=== PATIENT | female | born 1960 | race Caucasian/White ===

== ENCOUNTER → 2017-01-09 | Outpatient (CLI) | payer OTHER ==
[~2017-01-09] MED LIST: ALPRAZOLAM PO; GABITRIL4 MG PO; IMURAN50 MG PO; KCL PO; LASIX PO; LIPITOR PO; MESTINON; POSTURE600 MG PO; PRILOSEC PO; ZANTAC PO; ZANTAC150 M1 PO; ZOLOFT PO; [UNRECOGNIZED DRUG - OTHER]
--- NOTE | ~2017-01-09 | CT2 ---
[facility] A Service of [facility] & [facility] RADIOLOGY TEXT RESULTS PATIENT: TOSHA ROLDAN LOCATION: [facility] : 58 UNIT #: [id number] AGE: [address]: LATOYA ZARAGOZA APRN SEX: F ORDER DR: [id number] [facility] [address] [place], [place] [address] [id number] O MR#: [id number] #: [id number] NAME: TOSHA ROLDAN : 1960 SEX: F STUDY DATE/TIME: 01/09/2017 14:20 UNIT: [facility] ROOM: STUDY DESCRIPTION: CT Abd and Pelv W Cont Attending Physician: Latoya Zaragoza Aprn Referring Physician: Latoya Zaragoza Aprn Ordering Physician: Latoya Zaragoza Aprn Primary Care Physician: Italo Duncan M.D. MEDICAL IMAGING REPORT This report is preliminary unless electronic signature is present EXAM CT of abdomen and pelvis HISTORY Epigastric and mid abdominal pain for [address] images were obtained from the dome of the diaphragm through the symphysis pubis following administration of intravenous and oral contrast material. This CT exam was performed with one or more of the following radiation dose reduction techniques: automatic exposure control, adjustment of mA and/or kV according to patient size, and iterative reconstruction. FINDINGS Images through the lung bases are clear. Liver and spleen appear normal as are the stomach and proximal small bowel. Adrenal glands are within normal limits as is the pancreas. Kidneys appear normal. There is a hyperdensity which is seen within the gallbladder. I am uncertain if this reflects a gallbladder fold, potentially there may be some stones present. This could be better assessed with dedicated gallbladder ultrasound. No adenopathy is seen within the abdomen. There is no evidence of mechanical bowel obstruction. The appendix is visualized and is within normal limits. Urinary bladder is normal as is the uterus. There is some colonic diverticulosis without evidence of diverticulitis. No free fluid or adenopathy is seen in the pelvis. No aggressive osseous abnormalities are seen. 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 IMPRESSION [facility]. [facility] A Service of [facility] & [facility] RADIOLOGY TEXT RESULTS PATIENT: TOSHA ROLDAN LOCATION: [facility] : 58 UNIT #: [id number] AGE: [address]: LATOYA ZARAGOZA [employer] SEX: F ORDER DR: 1. No definite acute intraabdominal or intrapelvic process seen to account the patient's symptomatology. 2. The patient has some mild colonic diverticulosis without any evidence of diverticulitis. 3. Linear hyperdensity identified within the gallbladder may reflect a fold in the gallbladder. Possibility that there may be some stones or sludge within this area is not excluded. Given history, further evaluation with gallbladder ultrasound is suggested. 4. Please see the body of the report for any other additional incidental findings. Dictated by... Ashley Gustafson M.D. THIS IS AN ELECTRONICALLY VERIFIED REPORT Ashley Gustafson M.D. at 01/10/2017 2:49 PM AFF/pcl TD: 01/09/2017 22:30 JOB #: [id number] MEDICAL IMAGING REPORT Page 1 of 1 COPY
[2017-01-09 17:01] LABS: POC - CREATININE 0.81 mg/dL (0.44-1.03); POC - GFR >60.0 mL/min (>60)
== END | disposition home or self-care (01) ==
LOC: CCAT 12:35
PROVIDERS: Nurse Practitioner
DX: R10.13 Epigastric pain (principal); R10.11 Right upper quadrant pain; R10.12 Left upper quadrant pain; K57.30 Diverticulosis of large intestine without perforation or abscess without bleeding
CPT/HCPCS: 74177; 82565; Q9967